=== PATIENT | female | born 1965 | race Hispanic/Latino ===

== ENCOUNTER 2020-09-23 05:45 | Day surgery (SDC) | payer OTHER ==
[~2020-09-23] VITALS: Ht 162.6 cm; Wt 88.9 kg
[~2020-09-23 05:45] MED LIST: CALC600T15 PO; ERGO500014 PO; ESOM40CA54 PO; FOLI0.4T2 PO; HYDR12.54 PO; LOSA50TA64 PO; TRAM100C3 PO
[2020-09-23 06:00] VITALS: BP 120/73
[2020-09-23] MEDS ORDERED: SODIUM CHLORIDE 0.9% 1000ML 1,000 ML IV ONE ×2 (06:12→06:50)
[2020-09-23] MEDS ORDERED: PROPOFOL 10 MG/ML 20ML VIAL IV ONE (07:18)
[2020-09-23 07:32] VITALS: BP 88/45
[2020-09-23 07:36] VITALS: BP 96/53
[2020-09-23 07:41] VITALS: BP 99/58
[2020-09-23 07:46] VITALS: BP 103/60
== END 2020-09-23 08:06 | disposition home or self-care (01) ==
LOC: DAH 05:45 → ENDO 05:45
PROVIDERS: ATTEND Internal Medicine Gastroenterology
DX: R10.13 Epigastric pain (principal); K29.70 Gastritis, unspecified, without bleeding; K22.8 Other specified diseases of esophagus; R14.2 Eructation; I10 Essential (primary) hypertension; E66.9 Obesity, unspecified; E78.5 Hyperlipidemia, unspecified; Z90.49 Acquired absence of other specified parts of digestive tract; Z98.51 Tubal ligation status; Z79.899 Other long term (current) drug therapy; Z20.828 Contact with and (suspected) exposure to other viral communicable diseases
CPT/HCPCS: 43239; A4215; A4221; A4222; A4223; A4606; A4620; A4663; C9803; J2704; J7030 ×2; U0003

== ENCOUNTER 2022-06-29 09:40 | Day surgery (SDC) | payer OTHER ==
[~2022-06-29] VITALS: Ht 160 cm; Wt 88.0 kg
[2022-06-29] VITALS (9 sets, daily range): BP systolic 97–114; BP diastolic 54–71
[~2022-06-29 09:40] MED LIST changes: +ASPI-1197 PO; +ATOR40TA71 PO; -CALC600T15 PO; -ERGO500014 PO; -FOLI0.4T2 PO; +FOLI0.4T6 PO; +TOPI100T37 PO; -TRAM100C3 PO; +VITA-164 PO; +VITAMIN D2 PO
[2022-06-29] MEDS ORDERED: 0.9%NACL 1000ML 1,000 ML IV ONE (09:58)
[2022-06-29] MEDS ORDERED: PROPOFOL 10 MG/ML 20ML VIAL IV ONE ×2 (12:11)
== END 2022-06-29 13:10 | disposition home or self-care (01) ==
LOC: ENDO 09:40 → EDSTATUS 07-29 08:00
PROVIDERS: ATTEND Internal Medicine Gastroenterology
DX: K92.1 Melena (principal); Z20.822 Contact with and (suspected) exposure to COVID-19; I10 Essential (primary) hypertension; E78.5 Hyperlipidemia, unspecified; K21.9 Gastro-esophageal reflux disease without esophagitis; G43.909 Migraine, unspecified, not intractable, without status migrainosus
CPT/HCPCS: 87426; 45378; J7030; J2704; A4620; A4215 ×2; A4223; A4222; A4221; A4663